=== PATIENT | female | born 1990 ===

== ENCOUNTER 2017-07-11 18:54 | Inpatient (IN) | payer OTHER ==
[~2017-07-11] VITALS: Ht 167.6 cm; Wt 80.3 kg
[2017-07-11] MEDS ORDERED: PRENATAL TABLE1 EAC1 PO (23:38)
== END 2017-07-13 10:42 | disposition home or self-care (01) | DRG 767 ==
LOC: LDR 18:54 → O/R 18:54 → SURH 07-12 17:54
PROVIDERS: Obstetrics & Gynecology
PROC: 4A1HXCZ Monitoring of Products of Conception, Cardiac Rate, External Approach (ICD-10-PCS; 2017-07-11)
PROC: 10D17Z9 Manual Extraction of Products of Conception, Retained, Via Natural or Artificial Opening (ICD-10-PCS; 2017-07-12)
PROC: 3E033VJ Introduction of Other Hormone into Peripheral Vein, Percutaneous Approach (ICD-10-PCS; 2017-07-12)
PROC: 10E0XZZ Delivery of Products of Conception, External Approach (ICD-10-PCS; principal; 2017-07-12 10:00)
DX: O36.4XX0 Maternal care for intrauterine death, not applicable or unspecified (principal); O73.1 Retained portions of placenta and membranes, without hemorrhage; O69.81X0 Labor and delivery complicated by cord around neck, without compression, not applicable or unspecified; O24.419 Gestational diabetes mellitus in pregnancy, unspecified control; Z3A.16 16 weeks gestation of pregnancy; Z37.1 Single stillbirth